=== PATIENT | male | born 1965 ===

== ENCOUNTER 2020-11-04 03:57 | Emergency (ER) | payer SELFPAY ==
--- OUTSIDE RECORDS SUMMARY | 2020-11-04 04:00 | XMS REPORT | Continuity of Care Document ---
:1965 Author Organization [facility] t Address [address] [place] [address] Care Team Providers Name Role Phone DR CORINNE CHACON Attending Clinician Unavailable Yovani Santana MD Attending Clinician Unknown Attending Clinician Unavailable Harman Mills MD Attending Clinician Angeline ARZATE Attending Clinician Amado Hubbard MD Attending Clinician Kendall LEONG Attending Clinician DR INES Admitting Clinician Unavailable Payers Payer Name Policy Type Policy Number Effective Date Expiration Date S ource Problems This patient has no known problems. Allergies, Adverse Reactions, Alerts Allergy Allergy Status Severity Reaction(s) Onset Inactive Treating Comm ents Source Name Type Date Date Clinician No Known DA Active U 2019-03 [facility]16 [place] [facility] Medications This patient has no known medications. Procedures This patient has no known procedures. Encounters Start End Encounter Admission Attending Care Care Encounter Source Date/Time Date/Time Type Type Clinicians Facility Department ID 2020-06-01 2020-06-01 Outpatient CORINNE JIMÉNEZ [facility] [id number] [place] 09:16:00 [facility] 2020-05-10 2020-05-10 Emergency E MHBL [facility]BL [id number] [facility]BL 11:10:00 11:10:00 2020-04-26 2020-04-26 Emergency E MHBL MED [id number] [facility]BL 07:26:00 07:26:00 2020-04-25 2020-04-25 Emergency E MHBL MED [id number] [facility]BL 16:24:00 16:24:00 2020-04-05 2020-04-05 Emergency Max, [facility] [id number] 04:04:00 07:16:00 Yovani [facility] [id number] League 4.2.7.2.686 [place] [id number] ([facility]) 2020-04-05 2020-04-05 Telephone SIMONE Santana [id number] 00:00:00 00:00:00 Yovani Ramírez [place] [id number]686 [id number] 2020-01-18 2020-01-18 Outpatient E MHSE ARIANNA [id number] MH 22:00:00 22:00:00 [facility] 2019-10-07 2019-10-07 Telephone Unknown, [facility] [id number] 00:00:00 00:00:00 [facility] Health [id number] Clear 4.2.7.2.686 [place] [phone] [place] [id number] Office Building 2019-10-06 2019-10-06 Emergency Dany Mills [facility] [id number] 06:32:37 09:53:00 Alejandro Marcus [facility] [id number] League 4.2.7.2.686 [place] [id number] ([facility]) 2019-09-21 2019-09-22 Emergency Haydee [facility] [id number] 23:47:03 00:20:00 [facility] [id number] [place] 4.2.7.2.686 [facility] [phone] [address] ([facility]) 2019-05-19 2019-05-19 Emergency Kendall [facility] [id number] 09:15:00 12:21:00 [employer] [id number] League 4.2.7.2.686 [facility] [phone] [address] ([facility]) Results Test Description Test Time Test Comments Results Result [facility] e Comments - XR HUMERUS 2+V 2020-03-08 LT 23:40:00 [facility] 1965 Sex: M Name: BIB ALCANTAR [facility] : 1965 Age/S: 54 / M [id number] Unit #: [id number] Loc: [place] [address] Phys: Fabien Sanches MD Acct: [id number] Dis Date: Status: REG ER PHONE #: [phone] Exam Date: 03/08/2020 2330 FAX #: Reason: injury 6 weeks ago EXAMS: CPT: [id number] XR HUMERUS 2+[place] [address] Fluoro Time: DAP (Gy m2): Air Kerma (mGy): EXAM: Left shoulder, 3 views Left humerus, 2 views Location code:J9 HISTORY: injury 6 weeks ago COMPARISON: None available FINDINGS: There is no acute fracture or dislocation. the soft tissues are unremarkable.. IMPRESSION: No acute findings. at 2340 Reported and signed by: Jose Guadalupe Webber M.D. CC: Fabien Sanches MD PAGE 1 Signed Report Name: BIB ALCANTAR [facility] : 1965 Age/S: 54 / M [id number] Unit #: [id number] Loc: [place] [address] Phys: Fabien Sanches MD Acct: [id number] Dis Date: Status: REG ER PHONE #: [phone] Exam Date: 03/08/2020 2330 FAX #: Reason: injury 6 weeks ago EXAMS: CPT: [id number] XR HUMERUS 2+[place] [address] Fluoro Time: DAP (Gy m2): Air Kerma (mGy): <Continued> Technologist: Shawn Kendrick, RT(R)(CT)(MRI) Trnscb Date/Time: 03/08/2020 (2339) [email or web address] Orig Print D/T: S: 03/08/2020 (2024) PAGE 2 Signed Report - XR SHOULDER 2+V 2020-03-08 LT 23:40:00 [facility] 1965 Sex: M Name: BIB ALCANTAR [facility] : 1965 Age/S: 54 / M [id number] Unit #: [id number] Loc: [place] [address] Phys: Fabien Sanches MD Acct: [id number] Dis Date: Status: REG ER PHONE #: [phone] Exam Date: 03/08/2020 2310 FAX #: Reason: injury 6 weeks ago EXAMS: CPT: [id number] XR SHOULDER 2+[place] [address] Fluoro Time: DAP (Gy m2): Air Kerma (mGy): EXAM: Left shoulder, 3 views Left humerus, 2 views Location code:J9 HISTORY: injury 6 weeks ago COMPARISON: None available FINDINGS: There is no acute fracture or dislocation. the soft tissues are unremarkable.. IMPRESSION: No acute findings. at 2340 Reported and signed by: Jose Guadalupe Webber M.D. CC: Fabien Sanches MD PAGE 1 Signed Report Name: BIB ALCANTAR [place] : 1965 Age/S: 54 / M [id number] Unit #: [id number] Loc: [place] [address] Phys: Fabien Sanches MD Acct: [id number] Dis Date: Status: REG ER PHONE #: [phone] Exam Date: 03/08/2020 2310 FAX #: Reason: injury 6 weeks ago EXAMS: CPT: [id number] XR SHOULDER 2+[place] [address] Fluoro Time: DAP (Gy m2): Air Kerma (mGy): <Continued> Technologist: Shawn Kendrick, RT(R)(CT)(MRI) Trnscb Date/Time: 03/08/2020 (2340) [email or web address] Orig Print D/T: S: 03/08/2020 (4229) PAGE 2 Signed Report - XR ELBOW 2 VIEWS 2020-03-08 LT 23:39:00 [facility] 1965 Sex: M Name: BIB ALCANTAR [place] : 1965 Age/S: 54 / M [id number] Unit #: [id number] Loc: [place] [address] Phys: Fabien Sanches MD Acct: [id number] Dis Date: Status: REG ER PHONE #: [phone] Exam Date: 03/08/2020 2316 FAX #: Reason: injury 6 weeks ago EXAMS: CPT: [id number] [place] [address] [place] [address] Fluoro Time: DAP (Gy m2): Air Kerma (mGy): EXAM: Left elbow, 3 views Location code:J9 HISTORY: injury 6 weeks ago COMPARISON: None available FINDINGS: There is no acute fracture or dislocation. Mild posterior elbow soft tissue swelling. A 3 mm density is noted in the posterior elbow soft tissues. IMPRESSION: No acute fracture. Posterior elbow soft tissue swelling with 3 mm density.. at 2339 Reported and signed by: Jose Guadalupe Webber M.D. CC: Fabine Sanches MD PAGE 1 Signed Report Name: BIB ALCANTAR [facility] : 1965 Age/S: 54 / M [id number] Unit #: [id number] Loc: [place] [address] Phys: Fabien Sanches MD Acct: [id number] Dis Date: Status: REG ER PHONE #: [phone] Exam Date: 03/08/2020 2316 FAX #: Reason: injury 6 weeks ago EXAMS: CPT: [id number] XR [place] [address] [place] [address] Fluoro Time: DAP (Gy m2): Air Kerma (mGy): <Continued> Technologist: Shawn Kendrick, RT(R)(CT)(MRI) Trnscb Date/Time: 03/08/2020 (2276) [email or web address] Orig Print D/T: S: 03/08/2020 (6783) PAGE 2 Signed Report
--- NOTE | 2020-11-04 04:51 | ER ---
Nurse's Notes [facility] Name: Ramírez Melara Jr Age: 55 yrs Sex: Male : 1965 Arrival Date: 11/04/2020 Time: 04:03 Bed Waiting Private MD: Diagnosis: Presentation: 11/04 04:35 Chief complaint: Patient states: neck pain that has been there for years, also has em joint and body aches, tested covid neg. 3 days ago. Coronavirus screen: Client denies travel out of the [place] in the last 14 days. Ebola Screen: Patient negative for fever greater than or equal to 101.5 degrees Fahrenheit, and additional compatible Ebola Virus Disease symptoms Patient denies exposure to infectious person. Patient denies travel to an Ebola-affected area in the 21 days before illness onset. No symptoms or risks identified at this time. Initial Sepsis Screen: Does the patient meet any 2 criteria? HR > 90 bpm. No. Patient's initial sepsis screen is negative. Does the patient have a suspected source of infection? No. Patient's initial sepsis screen is negative. Risk Assessment: Do you want to hurt yourself or someone else? Patient reports no desire to harm self or others. Onset of symptoms was November 04, 2020. 04:35 Method Of Arrival: Ambulatory em 04:35 Acuity: RENNY 4 em Triage Assessment: 04:41 General: Appears in no apparent distress. comfortable, Behavior is calm, cooperative, em appropriate for age. Pain: Complains of pain in neck. Neuro: Level of Consciousness is awake, alert, obeys commands, Oriented to person, place, time, situation. Cardiovascular: Capillary refill < 3 seconds Patient's skin is warm and dry. Respiratory: Airway is patent Respiratory effort is even, unlabored, Respiratory pattern is regular, symmetrical. Derm: Skin is intact, is healthy with good turgor, Skin is pink, warm \T\ dry. Musculoskeletal: Capillary refill < 3 seconds, Range of motion: intact in all extremities. Historical: - Allergies: 04:41 No Known Allergies; em - PMHx: 04:41 Diabetes mellitus; em - PSHx: 04:41 None; em - Immunization history:: Adult Immunizations up to date. - Social history:: Smoking status: . Screenin:42 Abuse screen: Denies threats or abuse. Nutritional screening: No deficits noted. em Tuberculosis screening: No symptoms or risk factors identified. Fall Risk None identified. Vital Signs: 04:35 BP 105 / 59; Pulse 97; Resp 18; Temp 98.3; Pulse Ox 97% on R/A; em ED Course: 04:03 Patient arrived in ED. bp1 04:41 Triage completed. em 04:41 Arm band placed on. em 04:42 Patient has correct armband on for positive identification. em 04:42 No provider procedures requiring assistance completed. Patient did not have IV access em during this emergency room visit. Administered Medications: No medications were administered Outcome: 04:50 Patient left the ED. em Signatures: Rich Kellogg RN RN em Henny Beauchamp bp1
[2020-11-04 04:56] VITALS: BP 105/59; TEMP 98.3; O2SAT 97
== END 2020-11-04 04:50 | disposition left against medical advice (07) ==
LOC: ER 03:57
DX: Z53.21 Procedure and treatment not carried out due to patient leaving prior to being seen by health care provider (principal)
CPT/HCPCS: 99281